=== PATIENT | female | born 1945 | race Caucasian/White ===

== ENCOUNTER → 2017-01-30 | Outpatient (CLI) | payer MEDICARE, BC | LOC: COL.LAB 10:48 | DX: Z01.812 Encounter for preprocedural laboratory examination (principal) ==

== ENCOUNTER → 2017-08-18 | Outpatient (CLI) | payer MEDICARE, BC | LOC: COL.RAD 10:57 | DX: M19.011 Primary osteoarthritis, right shoulder (principal) | CPT/HCPCS: J3301; Q9967 ==